=== PATIENT | female | born 1955 ===

== ENCOUNTER 2018-08-06 07:10 | Day surgery (SDC) | payer MEDICARE, MEDICAID ==
[2018-07-29 09:32] VITALS: BMI 34.0
[2018-08-06] MEDS ORDERED: ISOSULFAN BLUE 10 MG/ML ML SC ONE (15:17)
[2018-08-06] MEDS ORDERED: Bupivacaine HCl 0.5% PF (30 ml) Inj ONE (15:17)
[2018-08-06] MEDS ORDERED: Lidocaine/Epinephrine 1% 1:100000 10 ML IJ ONE (15:18)
[2018-08-06] MEDS ORDERED: ceFAZolin 1 gm in NS 2 GM/200 ML BAG IVPB ONE (15:18)
[2018-08-06] MEDS ORDERED: Midazolam 2 MG/2 ML VIAL ONE (15:29)
[2018-08-06] MEDS ORDERED: Propofol 10 mg/ml Inj (20 ML) ONE (15:29)
[2018-08-06] MEDS ORDERED: Oxycodone/Acetaminophen 5/325 mg Tab PO PRN (17:03)
[2018-08-06] MEDS: HYDROmorphone 0.5 mg/0.5 ml ISec IVP PRN ×2 (17:05→17:32)
--- NOTE | 2018-08-06 17:09 | PCM.SURG1 ---
Surgeon's Initial Post Op Note - Surgeon's Notes Surgeon: Dr. Yin X Ray Consultant: Mady Thompson, PGY2; Naomi BEASLEY Pre-Operative Diagnosis: left breast mass Operative Findings: left breast mass approximately 3cm in diameter, adequate h emostasis at end of case Post-Operative Diagnosis: same Operation Performed: Stereotactic lumpectomy of left breast mass Specimen/Specimens Removed: left breast mass Estimated Blood Loss: EBL {In ML}: 15 Drains Used: No Drains Post-Op Condition: Fair Date of Surgery/Procedure: 08/06/18 Time of Surgery/Procedure: 15:00
[2018-08-06 18:26] VITALS: RESP 16; TEMP 97.6; O2SAT 95
[2018-08-06 19:00] VITALS: BP 111/78; PULSE 73
== END 2018-08-06 19:01 | disposition home or self-care (01) ==
LOC: C.SDS 07:10
PROVIDERS: ATTEND Surgery Surgical Critical Care
DX: N60.09 Solitary cyst of unspecified breast (principal); N63.20 Unspecified lump in the left breast, unspecified quadrant
CPT/HCPCS: 19285; 19301; 82948; J0690; J1170; J2250; J2704; J3010

== ENCOUNTER 2018-12-17 11:03 | Outpatient (CLI) | payer MEDICARE, MEDICAID | END 2018-12-17 11:04 | disposition home or self-care (01) | LOC: C.CTH 11:03 ==